=== PATIENT | male | born 1970 | race Caucasian/White ===

== ENCOUNTER 2016-07-02 08:06 | Emergency (ER) | payer OTHER ==
[~2016-07-02] VITALS: Ht 167.6 cm; Wt 77.0 kg
[2016-07-02 08:13] VITALS: TEMP 36.5; Ht 167.6 cm; Wt 77.0 kg
[2016-07-02] MEDS ORDERED: IBUP-1459 PO (08:21)
[2016-07-02] MEDS ORDERED: MoRPHine SULFATE 4 MG/ML 1 ML CARP\\VIAL IV STA (08:35)
[2016-07-02] MEDS ORDERED: ONDANSETRON INJ 2 MG/ML 2 ML VIAL IV STA (08:35)
[2016-07-02] MEDS ORDERED: CLINDAMYCIN IV 600 MG in DEXTROSE 5% ADD-VANTAGE 50ML 50 ML IV STA (08:44)
[2016-07-02] MEDS ORDERED: CLINDAMYCIN 600 MG/54 ML D5W IV ONE (08:45)
[2016-07-02 09:03] LABS: BASO % 0.4 %; BASO ABS # 0.06 K/uL (0-0.2); COMPLETE YES; EOS % 2.1 %; HEMATOCRIT 45.3 % (42-52); IG% 0.3 %; LYMPH % 12.4 %; LYMPH ABS # 1.92 K/uL (1.2-3.4); MEAN CELL VOLUME 91.9 fL (80-100); MEAN CORPUSCULAR HEMOGLOBIN 32.9 pg (25-34); MEAN CORPUSCULAR HGB CONC 35.8 g/dl (32-36); MEAN PLATELET VOLUME 9.7 fL (7.4-10.4); MONO % 9.3 %; NEUT % 75.5 %; PLATELET COUNT 291 K/uL (130-400); RED BLOOD COUNT 4.93 M/uL (4.7-6.1); WHITE BLOOD COUNT 15.44 K/uL (4.8-10.8)
[2016-07-02 09:14] VITALS: BP 137/80; PULSE 66; O2SAT 97
--- NOTE | 2016-07-02 09:14 | EMERGENCY ROOM VISIT NOTE ---
History First contact with patient: 08:16 Chief Complaint: DENTAL PAIN Stated Complaint: TOOTH PAIN Nursing Triage Summary: right back dental pain History of Present Illness The patient is a 45 year old male who presents to the Emergency Department by private vehicle for evaluation of his dental pain and facial swelling. The patient reports that he developed pain to the affected tooth approximately 3 days ago. The tooth has been fractured for some time now. He contacted his dentist and does have an appointment in 4 weeks. He is had no fevers, but does report chills. He reports pain radiating to his ear. He reports increasing swelling over the last 48 hours which prompted his visit today. He is tried [id number] medications with minimal relief of symptoms. He rates his current discomfort as an 8/10. He denies any headaches, distance, lightheadedness, neck stiffness, nausea, vomiting, chest pain, or abdominal pain. Review of Systems A complete 10-point Review of Systems was discussed with the patient, with pertinent positives and negatives listed in the History of Present Illness. All remaining Review of Systems questions can be considered negative unless otherwise specified. Social History Smoking Status: Current Every Day Smoker Smokeless Tobacco Use: No Alcohol Use: occasionally Drug Use: none Marital Status: single Occupation Status: employed Current/Historical Medications Scheduled Clindamycin Hcl (Cleocin), 300 MG PO QID Ibuprofen (Motrin), 400 MG PO TID Scheduled PRN Hydrocodone/Acetaminophen 5MG/325MG ([place] 5MG/325MG), 1-2 TABLET PO Q4H PRN for Pain Allergies Coded Allergies: Codeine (Verified Allergy, Mild, ., 07/02/16) Penicillins (Verified Allergy, Unknown, ., 07/02/16) Physical Exam Vital Signs Date Time Temp Pulse Resp B/P Pulse Ox O2 Delivery O2 Flow Rate FiO2 07/02/16 09:14 66 20 137/80 97 Room Air 07/02/16 08:13 36.5 72 16 138/91 97 Room Air Pain Rating (0-10): 8 Physical Exam VITAL SIGNS Vital signs and nursing notes were reviewed. GENERAL 45-year-old male appearing his stated age who is in no acute distress. Communicates well with provider and answers questions appropriately. HEAD Normocephalic, Atraumatic. Mild swelling noted to the RIGHT lower jaw area. Moderately tender to palpation. No erythema noted. No Battles Sign or Raccoons Eyes. No depressed skull fractures palpable. EYES PERRL with EOMI bilaterally. EARS No deformities of external structures noted on gross examination bilaterally. No pain elicited with palpation of the tragus bilaterally. External auditory canals without discharge or otorrhea. Tympanic membranes pearly gabriel without retraction or bulging. No fluid or purulent material visualized behind the TM. NOSE Midline and without cyanosis. No epistaxis or purulent drainage noted. Septum midline without deviation or septal hematoma noted. MOUTH/OROPHARYNX Without perioral cyanosis. Buccal mucosa pink and moist and without leukoplakia. Tongue midline with equal elevation of palate bilaterally. No tonsillar hypertrophy, erythema, or exudates noted. Poor dentition noted. The RIGHT second molar tooth is carious with fracture to the medial pole. Surrounding gums erythematous and edematous without discharge. Exquisite tenderness to palpation of affected tooth. No trismus. No fluctuance to palpation or active drainage appreciated. No sublingual edema. NECK Neck with FROM. Supple to palpation. No lymphadenopathy noted. No nuchal rigidity. Medical Decision & Procedures Laboratory Results 07/02/16 08:41 Red Blood Count 4.93, Mean Corpuscular Volume 91.9, Mean Corpuscular Hemoglobin 32.9, Mean Corpuscular Hemoglobin Concent 35.8, Mean Platelet Volume 9.7, Neutrophils (%) (Auto) 75.5, Lymphocytes (%) (Auto) 12.4, Monocytes (%) (Auto) 9.3, Eosinophils (%) (Auto) 2.1, Basophils (%) (Auto) 0.4, Neutrophils # (Auto) 11.66, Lymphocytes # (Auto) 1.92, Monocytes # (Auto) 1.43, Eosinophils # (Auto) 0.33, Basophils # (Auto) 0.06 07/02/16 08:41 Test 07/02/16 08:41 White Blood Count 15.44 K/uL (4.8-10.8) Red Blood Count 4.93 M/uL (4.7-6.1) Hemoglobin 16.2 g/dL (14.0-18.0) Hematocrit 45.3 % (42-52) Mean Corpuscular Volume 91.9 fL (80-100) Mean Corpuscular Hemoglobin 32.9 pg (25-34) Mean Corpuscular Hemoglobin Concent 35.8 g/dl (32-36) Platelet Count 291 K/uL (130-400) Mean Platelet Volume 9.7 fL (7.4-10.4) Neutrophils (%) (Auto) 75.5 % Lymphocytes (%) (Auto) 12.4 % Monocytes (%) (Auto) 9.3 % Eosinophils (%) (Auto) 2.1 % Basophils (%) (Auto) 0.4 % Neutrophils # (Auto) 11.66 K/uL (1.4-6.5) Lymphocytes # (Auto) 1.92 K/uL (1.2-3.4) Monocytes # (Auto) 1.43 K/uL (0.11-0.59) Eosinophils # (Auto) 0.33 K/uL (0-0.5) Basophils # (Auto) 0.06 K/uL (0-0.2) RDW Standard Deviation 42.7 fL (36.4-46.3) RDW Coefficient of Variation 12.7 % (11.5-14.5) Immature Granulocyte % (Auto) 0.3 % Immature Granulocyte # (Auto) 0.04 K/uL (0.00-0.02) Anion Gap 10.0 mmol/L (3-11) Est Creatinine Clear Calc Drug Dose 100.1 ml/min Estimated GFR () 117.5 Estimated GFR (Non- 101.4 BUN/Creatinine Ratio 15.8 (10-20) Calcium Level 9.2 mg/dl (8.5-10.1) Medications Administered Medications (Trade) Dose Ordered Sig/Laura Route Start Time Stop Time Status Last Admin Dose Admin Morphine Sulfate (MoRPHine SULFATE INJ) 4 mg NOW STAT IV 07/02/16 08:35 07/02/16 08:37 DC 07/02/16 09:01 4 MG Ondansetron HCl 4 mg 4 mg NOW STAT IV 07/02/16 08:35 07/02/16 08:37 DC 07/02/16 09:00 4 MG Clindamycin Phosphate/Dextrose (Cleocin Iv/ Dextrose Add-[place] 50ML) 54 ml @ 108 mls/hr NOW STAT IV 07/02/16 08:44 07/02/16 09:13 DC 07/02/16 09:10 108 MLS/HR ED Course Patient was seen and evaluated by myself. Labs were drawn, saline lock in place. The patient received 4 mg morphine and 4 mg Zofran intravenously for pain. Patient was treated with IV clindamycin. Laboratory results chemistry moderate leukocytosis without left shift. The patient is not anemic. There are no significant electrolyte abnormalities. Patient was reevaluated and resting comfortably at this point. The patient was educated on today's findings. He was encouraged to contact his dentist from today's visit. He was also encouraged to follow-up appointment 4 hours for recheck or return sooner for any changing or worsening symptoms. The patient was educated on worrisome symptoms for return visit to the emergency department. Patient discharged home afebrile and in good condition. Medical Decision Given the patient's presentation and exam findings, I did elect to perform the above-mentioned workup. The patient presents today with swelling to the RIGHT- sided jaw. He does have a dental fracture which is likely the source of the patient's periapical abscess with associated facial cellulitis. He has no fever. He does have a mild leukocytosis. He was treated with intravenous clindamycin as he is allergic to penicillins. His pain was adequately controlled the emergency department. He will be placed on clindamycin and pain medication for home. He will follow-up with his dentist as scheduled or return for any changing/worsening symptoms. Patient discharged home afebrile and in good condition with his family member driving. In the evaluation and treatment of this patient, the following differential diagnoses were considered: Periapical Abscess, Osteonecrosis of the Jaw, Dental Fracture, Dental Caries, Ramez's Angina, Vincent's Angina, Facial Cellulitis. Impression Primary Impression: Periapical abscess Additional Impression: Facial cellulitis Departure Information Dispostion Home / Self-Care Condition GOOD Prescriptions Hydrocodone/Acetaminophen 5MG/325MG ([place] 5MG/325MG) Tab 1-2 TABLET PO Q4H Y for Pain, #20 TAB For Initial Treatment Prov: Vance Mai PA-C 07/02/16 Clindamycin Hcl (CLEOCIN) 300 Mg Cap 300 MG PO QID for 10 Days, #40 CAP Prov: Vance Mai PA-C 07/02/16 Referrals No Doctor, Assigned (PCP) Patient Instructions ED Abscess Dental, [facility] Additional Instructions You have been treated in the Emergency Department for Dental Pain - Periapical Abscess with Facial Cellulitis. You have received pain medicine in the emergency department which impairs your ability to operate a vehicle. It is illegal for you to drive after receiving these medicines. You have been prescribed [place] to be used for pain control. This is a narcotic medication. You cannot drive or consume alcohol while on this medicine. This medicine should only be used for pain that cannot be controlled with over-the- counter pain medicines. You were prescribed Cleocin to be taken as prescribed. This is an antibiotic. All antibiotics have the potential to cause diarrhea. Stop this medication and contact a medical provider if you were to develop any significant adverse side effects including: wheezing, shortness of breath, passing out, vomiting, or a diffuse rash. Always take antibiotics as directed and COMPLETE the ENTIRE course regardless of the improvement of your symptoms. For pain control, you can use the following bidk-qyy-spbdzzp medicines (if >12 yo): - Regular strength (325mg/tab) Tylenol (acetaminophen) 2 tabs every 4-6 hours as needed. Do not exceed 12 tablets in a 24 hour period. Avoid taking more than 4 grams (4000 mg) of Tylenol per day. This includes any other sources of acetaminophen you may take on a regular basis. - Regular strength (200 mg/tab) Advil (ibuprofen) 1-2 tabs every 4-6 hours as needed. Do not exceed a dose of 3200 mg per day. Refrain from smoking cigarettes or using chewing tobacco until you have been evaluated by your dentist. Keeping beverages lukewarm and consuming soft foods can decrease your pain. Warm compresses over the affected area may offer some relief. You MUST seek evaluation of your dental pain by a dentist following your visit to the Emergency Department. The Emergency Department is not capable of treating dental issues long-term. You should call your dentist as soon as possible to make an appointment for evaluation of your dental pain. Return to the emergency department if you develop the following symptoms despite treatment course outlined above: fever, intractable pain, increased redness, swelling, or purulent discharge. Problem Qualifiers
[2016-07-02 09:20] LABS: BUN/CREATININE RATIO 15.8 (10-20); CALCIUM 9.2 mg/dl (8.5-10.1); CREATININE 0.91 mg/dl (0.60-1.40); POTASSIUM 4.1 mmol/L (3.5-5.1)
[2016-07-02] MEDS ORDERED: HYDR-5688 PO ×2 (09:30→12:23)
[2016-07-02] MEDS ORDERED: CLIN300C2 PO (09:30)
--- NOTE | 2016-07-02 12:59 | Pharmacy Progress Note ---
ED Pharmacist Progress Note Date of Service: Jul 02, 2016. Received phone call from patient stating he would like to get his pain medication filled ([place]) however [facility] was refusing to fill the Rx because he had no insurance and was a [employer] paying customer. I advised the patient that we could give him a written Rx for the same medication but someone would have to peanut picker the Rx in person. I called the [facility] in [place] and made sure the Rx was cancelled, spoke with Ryne Green. Pharmacist stated the patient told her he felt he did not need the pain medication after she explained they do not usually fill C2 Rx's for ang[employer] paying customers. Shortly after getting home he states the effects of Morphine given in the ER were gone and he was in pain and needed the [place]. Vance Mai wrote new Rx and the Rx was placed in an envelope in central command office. Patient stated his girlfriend Eden Gross was in [place] and is permitted to pickup the Rx for him.
== END 2016-07-02 09:50 | disposition home or self-care (01) ==
LOC: C.EDB 08:08 → C.EDA 09:50
DX: K04.7 Periapical abscess without sinus (principal); L03.211 Cellulitis of face; F17.200 Nicotine dependence, unspecified, uncomplicated

== ENCOUNTER 2016-07-03 08:34 | Emergency (ER) | payer OTHER ==
[~2016-07-03] VITALS: Ht 167.6 cm; Wt 76.2 kg
[~2016-07-03 08:34] MED LIST: CLIN300C2 PO; HYDR-5688 PO; IBUP-1459 PO
[2016-07-03 08:39] VITALS: TEMP 37.1; Ht 167.6 cm; Wt 76.2 kg
[2016-07-03] MEDS ORDERED: MoRPHine SULFATE 10 MG/ML CARP/VIAL IV STA (09:23)
[2016-07-03] MEDS ORDERED: KETOROLAC TROMETHAMINE 30 MG/ML VIAL IV STA (09:23)
[2016-07-03] MEDS ORDERED: ONDANSETRON INJ 2 MG/ML 2 ML VIAL IV STA (09:23)
[2016-07-03] MEDS ORDERED: CLINDAMYCIN 600 MG/54 ML D5W IV ONE (09:30)
[2016-07-03] MEDS ORDERED: CLINDAMYCIN IV 600 MG in DEXTROSE 5% ADD-VANTAGE 50ML 50 ML IV SCH (10:00)
[2016-07-03 10:17] LABS: BASO % 0.3 %; BASO ABS # 0.05 K/uL (0-0.2); COMPLETE YES; EOS % 0.8 %; HEMATOCRIT 43.6 % (42-52); IG% 0.2 %; LYMPH % 11.8 %; LYMPH ABS # 1.85 K/uL (1.2-3.4); MEAN CELL VOLUME 90.5 fL (80-100); MEAN CORPUSCULAR HEMOGLOBIN 31.3 pg (25-34); MEAN CORPUSCULAR HGB CONC 34.6 g/dl (32-36); MEAN PLATELET VOLUME 9.6 fL (7.4-10.4); MONO % 11.6 %; NEUT % 75.3 %; PLATELET COUNT 282 K/uL (130-400); RED BLOOD COUNT 4.82 M/uL (4.7-6.1); WHITE BLOOD COUNT 15.65 K/uL (4.8-10.8)
[2016-07-03 10:31] LABS: BUN/CREATININE RATIO 10.8 (10-20); CALCIUM 9.3 mg/dl (8.5-10.1); CREATININE 0.89 mg/dl (0.60-1.40); POTASSIUM 3.9 mmol/L (3.5-5.1)
[2016-07-03 10:52] VITALS: BP 140/68; PULSE 66; O2SAT 98
--- NOTE | 2016-07-03 10:54 | EMERGENCY ROOM VISIT NOTE ---
History First contact with patient: 09:05 Chief Complaint: DENTAL PAIN Stated Complaint: TOOTH Nursing Triage Summary: right lower dental pain and swelling. States was seen yesterday, took the abx with no improvement per pt. History of Present Illness The patient is a 45 year old male who presents to the Emergency Room with complaints of worsening right lower dental pain and increased swelling since seen here yesterday. The patient states that he has a bad taste in his mouth. The patient states that the antibiotic did not help. The patient denies any fever, facial redness but does admit to some swelling in the right lower jaw. Review of Systems 6 system review was performed and was negative unless stated otherwise in history of present illness. Past Medical/Surgical History Club foot Social History Smoking Status: Former Smoker Alcohol Use: occasionally Drug Use: none Marital Status: single Occupation Status: employed Current/Historical Medications Scheduled Clindamycin Hcl (Cleocin), 300 MG PO QID Ibuprofen (Motrin), 400 MG PO TID Scheduled PRN Hydrocodone/Acetaminophen 5MG/325MG ([place] 5MG/325MG), 1-2 TABLET PO Q4H PRN for Pain Allergies Coded Allergies: Codeine (Verified Allergy, Mild, ., 07/03/16) Penicillins (Verified Allergy, Unknown, ., 07/03/16) Physical Exam Vital Signs Date Time Temp Pulse Resp B/P Pulse Ox O2 Delivery O2 Flow Rate FiO2 07/03/16 08:39 37.1 68 18 133/90 97 Room Air Physical Exam GENERAL: 45-year-old white male appears uncomfortable secondary to tooth pain. MENTAL Status: Alert and oriented 3. FACE: No erythema noted. There is some swelling noted over the right mandible. MOUTH: All teeth with diffuse decay. There is a palpable lump on the gingiva adjacent to the right lower teeth. NECK: Supple, no lymphadenopathy noted. No carotid bruits noted. LUNGS: Clear auscultation without wheezes rales or rhonchi. CARDIAC: Regular rate and rhythm without murmur. Pulses is full and equal throughout. Medical Decision & Procedures Laboratory Results 07/03/16 09:42 Red Blood Count 4.82, Mean Corpuscular Volume 90.5, Mean Corpuscular Hemoglobin 31.3, Mean Corpuscular Hemoglobin Concent 34.6, Mean Platelet Volume 9.6, Neutrophils (%) (Auto) 75.3, Lymphocytes (%) (Auto) 11.8, Monocytes (%) (Auto) 11.6, Eosinophils (%) (Auto) 0.8, Basophils (%) (Auto) 0.3, Neutrophils # (Auto ) 11.77, Lymphocytes # (Auto) 1.85, Monocytes # (Auto) 1.82, Eosinophils # (Auto ) 0.13, Basophils # (Auto) 0.05 07/03/16 09:42 Test 07/03/16 09:42 White Blood Count 15.65 K/uL (4.8-10.8) Red Blood Count 4.82 M/uL (4.7-6.1) Hemoglobin 15.1 g/dL (14.0-18.0) Hematocrit 43.6 % (42-52) Mean Corpuscular Volume 90.5 fL (80-100) Mean Corpuscular Hemoglobin 31.3 pg (25-34) Mean Corpuscular Hemoglobin Concent 34.6 g/dl (32-36) Platelet Count 282 K/uL (130-400) Mean Platelet Volume 9.6 fL (7.4-10.4) Neutrophils (%) (Auto) 75.3 % Lymphocytes (%) (Auto) 11.8 % Monocytes (%) (Auto) 11.6 % Eosinophils (%) (Auto) 0.8 % Basophils (%) (Auto) 0.3 % Neutrophils # (Auto) 11.77 K/uL (1.4-6.5) Lymphocytes # (Auto) 1.85 K/uL (1.2-3.4) Monocytes # (Auto) 1.82 K/uL (0.11-0.59) Eosinophils # (Auto) 0.13 K/uL (0-0.5) Basophils # (Auto) 0.05 K/uL (0-0.2) RDW Standard Deviation 41.5 fL (36.4-46.3) RDW Coefficient of Variation 12.5 % (11.5-14.5) Immature Granulocyte % (Auto) 0.2 % Immature Granulocyte # (Auto) 0.03 K/uL (0.00-0.02) Anion Gap 8.0 mmol/L (3-11) Est Creatinine Clear Calc Drug Dose 94.5 ml/min Estimated GFR () 119.7 Estimated GFR (Non- 103.3 BUN/Creatinine Ratio 10.8 (10-20) Calcium Level 9.3 mg/dl (8.5-10.1) Medications Administered Medications (Trade) Dose Ordered Sig/Laura Route Start Time Stop Time Status Last Admin Dose Admin Ketorolac Tromethamine (Toradol Inj) 30 mg NOW STAT IV 07/03/16 09:23 07/03/16 09:26 DC 07/03/16 09:49 30 MG Morphine Sulfate (MoRPHine SULFATE INJ) 6 mg NOW STAT IV 07/03/16 09:23 07/03/16 09:26 DC 07/03/16 09:50 6 MG Ondansetron HCl 4 mg 4 mg NOW STAT IV 07/03/16 09:23 07/03/16 09:26 DC 07/03/16 09:48 4 MG Clindamycin Phosphate/Dextrose (Cleocin Iv/ Dextrose Add-[place] 50ML) 54 ml @ 108 mls/hr 1000 IV 07/03/16 10:00 07/03/16 10:29 DC 07/03/16 10:14 108 MLS/HR Procedure Verbal consent was obtained Using aseptic technique a 19-gauge needle was used to drain the small abscess. Purulent fluid was expressed. The patient tolerated procedure well. ED Course The patient was evaluated. The patient's EMR was reviewed. IV access was obtained. CBC and differential and renal profile was ordered. The patient was given Cleocin 600 mg IV, morphine 6 mg IV and Zofran 4 mg IV. The abscess was opened with an 19-gauge needle and purulent fluid was expressed. The patient was reevaluated and was feeling better. The patient was discharged home in stable condition.. Medical Decision Differential diagnosis include periapical abscess, tooth decay, cellulitis Impression Primary Impression: Periapical abscess Departure Information Dispostion Home / Self-Care Condition GOOD Referrals No Doctor, Assigned (PCP) Forms HOME CARE DOCUMENTATION FORM, IMPORTANT VISIT INFORMATION Patient Instructions My [facility] [place] [facility] Additional Instructions Continue the antibiotic as prescribed yesterday. Continue pain medication as prescribed. Keep scheduled appointment with oral surgeon for removal of your teeth. If symptoms are not improving in 2 days return to ER. If they should worsen in the interim, return to ER immediately. Recommend warm compresses frequently to the affected area.
== END 2016-07-03 11:10 | disposition home or self-care (01) ==
LOC: C.EDB 08:35
DX: K04.7 Periapical abscess without sinus (principal); Z87.891 Personal history of nicotine dependence; Z88.0 Allergy status to penicillin; Z88.5 Allergy status to narcotic agent

== ENCOUNTER 2016-12-06 06:27 | Emergency (ER) | payer OTHER ==
[~2016-12-06] VITALS: Ht 167.6 cm; Wt 78.4 kg
[~2016-12-06 06:27] MED LIST changes: -CLIN300C2 PO
[2016-12-06 06:32] VITALS: TEMP 36.4; Ht 167.6 cm; Wt 78.4 kg
[2016-12-06] MEDS ORDERED: ONDANSETRON INJ 2 MG/ML 2 ML VIAL IV STA (06:43)
[2016-12-06] MEDS ORDERED: HYDROmorphone INJ 1 MG/ML SYR IV STA (06:43)
[2016-12-06] MEDS ORDERED: SODIUM CHLORIDE 0.9% 1000ML 1,000 ML IV STA (06:43)
--- NOTE | 2016-12-06 06:43 | EMERGENCY ROOM VISIT NOTE ---
History Report prepared by Cole: Jemma Richardson Under the Supervision of: Dr. Bennett Wisdom M.D. First contact with patient: 06:36 Chief Complaint: RIB PAIN Stated Complaint: RIB PAIN History of Present Illness The patient is a 45 year old male who presents to the Emergency Room with complaints of worsening rib pain beginning 3 days ago. The patient reports that 3 days ago he was working on his truck and the springs came back and hit him on his chest. After this incident, the patient reports that he heard a "pop." He reports taking ibuprofen for his pain and that palpation exacerbates his pain. The patient denies having nausea, vomiting, and black or bloody stool. He also denies coughing up blood. Source of History: patient Onset: 3 days ago Position: other (ribs) Timing: worsening Modifying Factors (Worsening): other (palpation ) Associated Symptoms: No nausea, No vomiting, No melena Note: also denies: coughing up blood Review of Systems See HPI for pertinent positives & negatives. A total of 10 systems reviewed and were otherwise negative. Past Medical & Surgical Medical Problems: (1) No active medical problems Family History Diabetes mellitus FHx: heart disease Social History Smoking Status: Former Smoker Alcohol Use: occasionally Drug Use: none Marital Status: single Occupation Status: employed Current/Historical Medications Scheduled PRN Diazepam (Valium), 5-10 MG PO Q6H PRN for Pain Ibuprofen (Motrin), 400 MG PO TID PRN for Pain Oxycodone Ir (Roxicodone Ir), 1-3 TAB PO Q4H PRN for Severe Pain Allergies Coded Allergies: Codeine (Verified Allergy, Mild, ., 12/06/16) Penicillins (Verified Allergy, Unknown, ., 12/06/16) Physical Exam Vital Signs Date Time Temp Pulse Resp B/P (MAP) Pulse Ox O2 Delivery O2 Flow Rate FiO2 12/06/16 09:45 69 18 143/85 94 Room Air 12/06/16 08:41 62 18 143/85 94 Room Air 12/06/16 06:32 36.4 69 18 144/87 98 Room Air Physical Exam GENERAL: Patient is uncomfortable appearing and in moderate distress. HEENT: No acute trauma, normocephalic atraumatic, mucous membranes moist, no nasal congestion, no scleral icterus. NECK: No stridor, no adenopathy, no meningismus, trachea is midline. LUNGS: No dyspnea. Clear to auscultation and equal bilaterally. No wheeze, no rhonchi. HEART: Regular rate and rhythm. No murmurs, rubs, gallops appreciated. CHEST: Significant tenderness to palpation to anterior sternum, no crepitus. Moderate tenderness to palpation to bilateral anterior ribs. ABDOMEN: Soft, nontender, bowel sounds positive, no masses appreciated, no peritonitis. BACK: No midline tenderness, no CVA tenderness EXTREMITIES: Normal motion all extremities, no cyanosis, no edema. NEUROLOGIC: Alert and oriented, no acute motor or sensory deficits, no focal weakness, cranial nerves grossly intact. SKIN: No rash, no jaundice, no diaphoresis. Medical Decision & Procedures ER Provider Diagnostic Interpretation: X ray results are stated below per my interpretation and the radiologist's interpretation. CHEST ONE VIEW PORTABLE HISTORY: anterior chest trauma COMPARISON: None. FINDINGS: The lungs are clear. Cardiac silhouette is normal in size. No pleural effusions. No pneumothorax. IMPRESSION: No acute process. Electronically signed by: Bentley Gibbs M.D. 12/06/2016 7:44 AM Dictated Date/Time: 12/06/2016 7:[address] results as stated below per interpretation by me and the radiologist: CHEST CT WITH CONTRAST CT DOSE: 355.84 mGy.cm HISTORY: Anterior chest pain. anterior chest trauma TECHNIQUE: Multiaxial CT images of the chest were performed following the intravenous administration of contrast. A dose lowering technique was utilized adhering to the principles of ALARA. COMPARISON: None. FINDINGS: The lungs are clear. The mediastinal vascular structures are within normal limits. No mediastinal or hilar lymphadenopathy. No pneumothorax. Limited views of the upper abdomen demonstrate a normal liver and spleen. Slight irregularity at the left anterior second rib best seen on image 107. There is trace edema posterior to the second rib. Therefore, this is suspicious for a nondisplaced fracture. No sternal fractures. Trace left pleural effusion. Low density soft tissue within the anterior mediastinum favors residual thymic tissue. Small hiatus hernia. No pericardial effusion. The mediastinal vascular structures are within normal limits. IMPRESSION: 1. Possible nondisplaced left anterior second rib fracture. Recommend correlation for pain at this location to assess for an acute injury. 2. Trace left pleural effusion. Electronically signed by: Bentley Gibbs M.D. 12/06/2016 8:21 AM Dictated Date/Time: 12/06/2016 8:10 AM Laboratory Results 12/06/16 06:51 Red Blood Count 5.00, Mean Corpuscular Volume 93.2, Mean Corpuscular Hemoglobin 31.8, Mean Corpuscular Hemoglobin Concent 34.1, Mean Platelet Volume 9.7, Neutrophils (%) (Auto) 58.4, Lymphocytes (%) (Auto) 27.0, Monocytes (%) (Auto) 8.4, Eosinophils (%) (Auto) 5.2, Basophils (%) (Auto) 0.9, Neutrophils # (Auto) 4.80, Lymphocytes # (Auto) 2.22, Monocytes # (Auto) 0.69, Eosinophils # (Auto) 0.43, Basophils # (Auto) 0.07 12/06/16 06:51 Test 12/06/16 06:51 White Blood Count 8.22 K/uL (4.8-10.8) Red Blood Count 5.00 M/uL (4.7-6.1) Hemoglobin 15.9 g/dL (14.0-18.0) Hematocrit 46.6 % (42-52) Mean Corpuscular Volume 93.2 fL (80-100) Mean Corpuscular Hemoglobin 31.8 pg (25-34) Mean Corpuscular Hemoglobin Concent 34.1 g/dl (32-36) Platelet Count 300 K/uL (130-400) Mean Platelet Volume 9.7 fL (7.4-10.4) Neutrophils (%) (Auto) 58.4 % Lymphocytes (%) (Auto) 27.0 % Monocytes (%) (Auto) 8.4 % Eosinophils (%) (Auto) 5.2 % Basophils (%) (Auto) 0.9 % Neutrophils # (Auto) 4.80 K/uL (1.4-6.5) Lymphocytes # (Auto) 2.22 K/uL (1.2-3.4) Monocytes # (Auto) 0.69 K/uL (0.11-0.59) Eosinophils # (Auto) 0.43 K/uL (0-0.5) Basophils # (Auto) 0.07 K/uL (0-0.2) RDW Standard Deviation 44.0 fL (36.4-46.3) RDW Coefficient of Variation 12.8 % (11.5-14.5) Immature Granulocyte % (Auto) 0.1 % Immature Granulocyte # (Auto) 0.01 K/uL (0.00-0.02) Anion Gap 6.0 mmol/L (3-11) Est Creatinine Clear Calc Drug Dose 98.8 ml/min Estimated GFR () 114.5 Estimated GFR (Non- 98.8 BUN/Creatinine Ratio 16.8 (10-20) Calcium Level 9.1 mg/dl (8.5-10.1) Total Creatine Kinase 78 U/L (39-308) Troponin I < 0.015 ng/ml (0-0.045) Laboratory results as reviewed by me. Medications Administered Medications (Trade) Dose Ordered Sig/Laura Route Start Time Stop Time Status Last Admin Dose Admin Hydromorphone HCl (Dilaudid Inj) 1 mg NOW STAT IV 12/06/16 06:43 12/06/16 06:45 DC 12/06/16 06:57 1 MG Ondansetron HCl (Zofran Inj) 4 mg NOW STAT IV 12/06/16 06:43 12/06/16 06:45 DC 12/06/16 06:57 4 MG Sodium Chloride 1,000 ml @ 999 mls/hr Q1H1M STAT IV 12/06/16 06:43 12/06/16 07:43 DC 12/06/16 06:57 999 MLS/HR Fentanyl Citrate (Fentanyl Inj) 100 mcg NOW STAT IV 12/06/16 07:00 12/06/16 07:01 DC 12/06/16 07:13 100 MCG Fentanyl Citrate (Fentanyl Inj) 100 mcg NOW STAT IV 12/06/16 07:41 12/06/16 07:42 DC 12/06/16 07:47 100 MCG Lorazepam (Ativan Inj) 1 mg NOW STAT IV 12/06/16 08:35 12/06/16 08:36 DC 12/06/16 08:40 1 MG Oxycodone HCl (Roxicodone Immediate Rel 5MG Home Pack) 1 homepack UD ONCE PO 12/06/16 09:45 12/06/16 09:46 DC 12/06/16 09:45 1 HOMEPACK ECG Indication: other (rib pain ) Rate (beats per minute): 60 Rhythm: normal sinus Findings: no acute ischemic change, no ectopy ED Course 0640: The patient was evaluated in room A10. A complete history and physical exam was performed. 0643: Ordered Sodium Chloride 1,000 ml @ 999 mls/hr IV, Zofran Inj 4 mg IV, Dilaudid Inj 1 mg IV. 0700: Ordered Fentanyl Citrate 100 mcg IV. 0712: The patient is still having pain. He is receiving his first dose of Fentanyl. I discussed planning on doing a CT scan of his chest if chest X-ray is still unremarkable. 0741: Ordered Fentanyl Citrate 100 mcg IV. 0755: The patient is receiving his third round of pain medications. 0830: The patient is feeling better but still says that he has a significant amount of pain. He is agreeable to trying Ativan. We are awaiting trauma surgery input. 0835: Ordered Lorazepam 1 mg IV. 0852: The patient is feeling much better. He would prefer not to be transferred. I reviewed the risks of narcotics and restrictions of them with him. 0939: The patient reports that he is feeling much better and is able to lay back in bed. He would like to go home. 0945: Ordered Oxycodone HCl 1 homepack PO. 0950: Reevaluated the patient. Discussed results and discharge instructions: He verbalized understanding and agreement. The patient is ready for discharge. Medical Decision Differentials include: contusion, fracture, pneumothorax, cardiac injury, and mediastinal injury. 45 yr old male with anterior chest pain s/p blunt trauma 72 hrs ago. No evidence cardiac injury by EKG/Trop. Initial CXR clear. Vitals ok (mild HTN). Took quite some time before pain got under control. Sent to CT given severity of his pain. 2nd anterior rib fracture noted with near edema and trace left pleural effusion. Suspect this is trace blood. He is feeling much better however. Labs look good. Reviewed with Trauma Surg at [facility] who agree with pain control, but if unable to get under control may need transfer. As feeling better I feel discharge reasonable and patient wishes to go home. I had long discussion regarding narcotic risks with patient and . I had long discussion about chest trauma and symptoms requiring immediate return/911. He is stable and comfortable with outpatient plan as is his . I made clear risks of benzos and narcs and their combination as well. Medication Reconcilliation Current Medication List: was personally reviewed by me Blood Pressure Screening Patient's blood pressure: Elevated blood pressure Blood pressure disposition: Elevated BP felt to be situational Impression Primary Impression: Left rib fracture Additional Impressions: Sternal contusion Blunt chest trauma Pleural effusion on left Scribe Attestation The scribe's documentation has been prepared under my direction and personally reviewed by me in its entirety. I confirm that the note above accurately reflects all work, treatment, procedures, and medical decision making performed by me. Departure Information Dispostion Home / Self-Care Prescriptions Diazepam (Valium) 5 Mg Tab 5-10 MG PO Q6H Y for Pain, #20 TAB Prov: Bennett Wisdom M.D. 12/06/16 Oxycodone Ir (Roxicodone Ir) 5 Mg Tab 1-3 TAB PO Q4H Y for Severe Pain, #30 TAB Prov: Bennett Wisdom M.D. 12/06/16 Referrals No Doctor, Assigned (PCP) Patient Instructions ED Fx Rib, My [facility] Additional Instructions You have received narcotic and benzodiazepine pain medication prescriptions. These medications may cause drowsiness and should not be used with other sedative medications. Do not drive, drink alcohol, perform dangerous activities , nor make important decisions after taking these medications. jail use or inappropriate use may lead to addiction. Using these medications together may lead to increase in sedative effects and should be used very cautiously. Problem Qualifiers
[2016-12-06] MEDS ORDERED: FENTANYL CITRATE INJ 50 MCG/1 ML 2 ML VIAL IV STA ×2 (07:00→07:41)
[2016-12-06 07:13] LABS: BASO % 0.9 %; BASO ABS # 0.07 K/uL (0-0.2); COMPLETE YES; EOS % 5.2 %; HEMATOCRIT 46.6 % (42-52); IG% 0.1 %; LYMPH ABS # 2.22 K/uL (1.2-3.4); MEAN CELL VOLUME 93.2 fL (80-100); MEAN CORPUSCULAR HEMOGLOBIN 31.8 pg (25-34); MEAN CORPUSCULAR HGB CONC 34.1 g/dl (32-36); MEAN PLATELET VOLUME 9.7 fL (7.4-10.4); MONO % 8.4 %; NEUT % 58.4 %; PLATELET COUNT 300 K/uL (130-400); WHITE BLOOD COUNT 8.22 K/uL (4.8-10.8)
[2016-12-06 07:30] LABS: BLOOD UREA NITROGEN 16 mg/dl (7-18); BUN/CREATININE RATIO 16.8 (10-20); CALCIUM 9.1 mg/dl (8.5-10.1); CARBON DIOXIDE 28 mmol/L (21-32); CHLORIDE 109 mmol/L (98-107); CREATININE 0.93 mg/dl (0.60-1.40); GLUCOSE 98 mg/dl (70-99); POTASSIUM 4.4 mmol/L (3.5-5.1); SODIUM 143 mmol/L (136-145)
[2016-12-06] MEDS ORDERED: OPTIRAY 320 IV PRN (07:45)
--- NOTE | 2016-12-06 07:46 | DIAGNOSTIC IMAGING REPORT ---
CHEST ONE VIEW PORTABLE HISTORY: anterior chest trauma COMPARISON: None. FINDINGS: The lungs are clear. Cardiac silhouette is normal in size. No pleural effusions. No pneumothorax. IMPRESSION: No acute process. Electronically signed by: Bentley Gibbs M.D. 12/06/2016 7:44 AM Dictated Date/Time: 12/06/2016 7:43 AM
--- NOTE | 2016-12-06 08:23 | DIAGNOSTIC IMAGING REPORT ---
CHEST CT WITH CONTRAST CT DOSE: 355.84 mGy.cm HISTORY: Anterior chest pain. anterior chest trauma TECHNIQUE: Multiaxial CT images of the chest were performed following the intravenous administration of contrast. A dose lowering technique was utilized adhering to the principles of ALARA. COMPARISON: None. FINDINGS: The lungs are clear. The mediastinal vascular structures are within normal limits. No mediastinal or hilar lymphadenopathy. No pneumothorax. Limited views of the upper abdomen demonstrate a normal liver and spleen. Slight irregularity at the left anterior second rib best seen on image 107. There is trace edema posterior to the second rib. Therefore, this is suspicious for a nondisplaced fracture. No sternal fractures. Trace left pleural effusion. Low density soft tissue within the anterior mediastinum favors residual thymic tissue. Small hiatus hernia. No pericardial effusion. The mediastinal vascular structures are within normal limits. IMPRESSION: 1. Possible nondisplaced left anterior second rib fracture. Recommend correlation for pain at this location to assess for an acute injury. 2. Trace left pleural effusion. Electronically signed by: Bentley Gibbs M.D. 12/06/2016 8:21 AM Dictated Date/Time: 12/06/2016 8:10 AM
[2016-12-06] MEDS ORDERED: LORAZEPAM 2 MG/ML 1 ML VIAL IV STA (08:35)
[2016-12-06] MEDS ORDERED: DIAZ-165 PO (09:41)
[2016-12-06] MEDS ORDERED: OXYC1TAB3 PO (09:41)
[2016-12-06 09:45] VITALS: BP 143/85; PULSE 69; O2SAT 94
[2016-12-06] MEDS ORDERED: OXYCODONE IR HOME PACK PO ONE (09:45)
== END 2016-12-06 09:50 | disposition home or self-care (01) ==
LOC: C.EDB 06:28 → C.EDA 09:50
DX: S22.32XA Fracture of one rib, left side, initial encounter for closed fracture (principal); S20.219A Contusion of unspecified front wall of thorax, initial encounter; J90 Pleural effusion, not elsewhere classified; W22.8XXA Striking against or struck by other objects, initial encounter; Y93.89 Activity, other specified; Y99.8 Other external cause status; Z87.891 Personal history of nicotine dependence; Z83.3 Family history of diabetes mellitus